=== PATIENT | female | born 1955 | race Caucasian/White ===

== ENCOUNTER 2023-12-08 11:43 | Emergency (ER) | payer MEDICARE ==
[~2023-12-08] VITALS: Ht 170.2 cm; Wt 125.0 kg
[2023-12-08] MEDS: LIDOcaine 1% 30ml preserv. free vial IJ ONE (11:55)
[2023-12-08] MEDS: vancomycin/NS 1 GM ADD-VANTAGE 250 ML IV ONE (13:33)
[2023-12-08] MEDS: TETanus/Pertussis (Acell)/Diphther VAC/PF (Tdap-Adult) 0.5ml syringe IMVAC ONE (13:50)
[2023-12-08] MEDS ORDERED: CEPH-585 PO (14:27)
[2023-12-08] MEDS ORDERED: HYDR-3965 PO (14:27)
[2023-12-08] MEDS: piperacillin/tazo 3.375gm/50ml 50 ML IV ONE (15:16)
[2023-12-08 16:00] VITALS: BP 126/70; PULSE 65; RESP 17; TEMP 97; O2SAT 99
== END 2023-12-08 16:01 | disposition home or self-care (01) ==
LOC: ER 11:44
DX: S63.291A Dislocation of distal interphalangeal joint of left index finger, initial encounter (principal); S69.92XA Unspecified injury of left wrist, hand and finger(s), initial encounter; Z89.022 Acquired absence of left finger(s); Z88.5 Allergy status to narcotic agent; Z79.2 Long term (current) use of antibiotics; W23.0XXA Caught, crushed, jammed, or pinched between moving objects, initial encounter; Y93.89 Activity, other specified; Y92.89 Other specified places as the place of occurrence of the external cause; Y99.8 Other external cause status
CPT/HCPCS: 26755; 73140; 90471; 90715; 96365; 96366; 96367; 99285; J2543; J3370; J7030; 12001; A6258; A6449